=== PATIENT | male | born 1985 ===

== ENCOUNTER 2017-12-20 19:38 | Emergency (ER) | payer OTHER ==
[2017-12-20 19:57] VITALS: BP 134/66
--- NOTE | 2017-12-20 19:59 | UC ---
Eye Complaint HPI - HPI Summary HPI Summary: 32 yo male presents with bruise under left eye. He tells me that about [employer]minutes [employer] he was playing soccer and another player elbowed him just below his LEFT eye. He continued to play until the game was over. Developed some swelling under the eye and bruising. Denies fever, chills, vision changes, headache, dizziness, or any pain. - History of Current Complaint Chief Complaint: UCEye Stated Complaint: EYE INJURY Time Seen by Provider: 12/20/17 19:58 Hx Obtained From: Patient Onset/Duration: Sudden Onset Timing: Constant Severity Initially: Mild Severity Currently: Mild Pain Intensity: 1 Pain Scale Used: 0-10 Numeric - Allergies/Home Medications Allergies/Adverse Reactions: Allergies Allergy/AdvReac Type Severity Reaction Status Date / Time No Known Allergies Allergy Verified 12/20/17 19:57 PMH/Surg Hx/FS Hx/Imm Hx - Additional Past Medical History Additional PMH: None Previously Healthy: Yes - Surgical History Surgical History: None - Family History Known Family History: Positive: None - Social History Occupation: Employed Full-time Lives: With Family Alcohol Use: None Substance Use Type: None Smoking Status (MU): Never Smoked Tobacco Review of Systems Constitutional: Negative Skin: Other - Bruise under left eye Eyes: Negative ENT: Negative Respiratory: Negative Cardiovascular: Negative Neurological: Negative Psychological: Negative All Other Systems Reviewed And Are Negative: Yes Physical Exam - Summary Physical Exam Summary: GENERAL: NAD. WDWN. No pain distress. SKIN: Mild edema and ecchymosis under left eye. No open wounds. No streaking, bleeding, or drainage. HEENT: Eyes: PERRLA. EOM intact. Conjunctiva clear without inflammation or discharge. NECK: Supple. Nontender. No lymphadenopathy. CHEST: No accessory muscle use. Breathing comfortably and in no distress. CV: Pulses intact NEURO: Alert. CN II-XII grossly intact. PSYCH: Age appropriate behavior. Triage Information Reviewed: Yes Vital Signs: Initial Vital Signs Temp 99 F 12/20/17 19:52 Pulse 87 12/20/17 19:52 Resp 18 12/20/17 19:52 BP 134/66 12/20/17 19:52 Pulse Ox 98 12/20/17 19:52 Eye Complaint Course/Dx - Course Course Of Treatment: Black eye. Advised to ice the area and take ibuprofen for pain. - Differential Dx/Diagnosis Provider Diagnoses: Black left eye Discharge - Sign-Out/Discharge Documenting (check all that apply): Patient Departure - Discharge Plan Condition: Stable Disposition: HOME Patient Education Materials: Black Eye (ED) [facility] [Primary Care Provider] - Additional Instructions: If you develop a fever, shortness of breath, chest pain, new or worsening symptoms - please call your PCP or go to the ED. 1) Apply ice to the area as much as possible 2) May take ibuprofen 600-800mg every 6-8 hours as needed for pain - Billing Disposition and Condition Condition: STABLE Disposition: Home
== END 2017-12-20 20:16 | disposition home or self-care (01) ==
LOC: UCEAST 19:38
DX: S00.12XA Contusion of left eyelid and periocular area, initial encounter (principal); W50.0XXA Accidental hit or strike by another person, initial encounter; Y93.66 Activity, soccer; Y92.322 Soccer field as the place of occurrence of the external cause
CPT/HCPCS: 99211; G0463